=== PATIENT | male | born 1960 | race Caucasian/White ===

== ENCOUNTER 2020-10-18 09:47 | Emergency (ER) | payer OTHER, SELFPAY ==
[2020-10-18] VITALS (14 sets, daily range): BP systolic 69–98; BP diastolic 45–68; PULSE 92–112; RESP 23–37; TEMP 36.3; O2SAT 86–95
--- NOTE | ~2020-10-18 | CT_ITS ---
EXAMINATION: CT cervical spine wo con DATE: 10/18/2020 09:53 INDICATION: Head injury. TECHNIQUE: Computed tomography (CT) of the cervical spine was performed without intravenous contrast. Automated exposure control and iterative reconstruction technique were employed. The dose-length pro duct was 497.98 mGy-cm. COMPARISON: None FINDINGS: There is a small left pneumothorax. There are airspace and groundglass opacities in the upp er lobes, left worse than right. Pneumomediastinum is noted. There are fractures of the left first-fi fth ribs. There is 9 degrees dextrocurvature of cervical spine. Vertebral body heights are normal. Th ere is moderately decreased disc height at C3-C4, severely decreased disc height at C4-C5 and C5-C6, and mildly decreased disc height at C6-C7. The endotracheal tube tip is in the trachea. The following disc levels are specifically discussed: C2-C3: There is no uncovertebral joint osteoarthritis. There is no facet joint osteoarthritis. There is no neural foraminal stenosis. There is no central canal stenosis. C3-C4: There is severe bilateral uncovertebral joint osteoarthritis. There is mild bilateral facet santiago int osteoarthritis. There is moderate right and mild left neural foraminal stenosis. There is mild ce ntral canal stenosis. C4-C5: There is severe bilateral uncovertebral joint osteoarthritis. There is mild bilateral facet santiago int osteoarthritis. There is mild right and moderate left neural foraminal stenosis. There is mild ce ntral canal stenosis. C5-C6: There is severe bilateral uncovertebral joint osteoarthritis. There is mild bilateral facet santiago int osteoarthritis. There is mild bilateral neural foraminal stenosis. There is mild central canal st enosis. C6-C7: There is mild bilateral uncovertebral joint osteoarthritis. There is mild bilateral facet join t osteoarthritis. There is no neural foraminal stenosis. There is mild central canal stenosis. C7-T1: There is no uncovertebral joint osteoarthritis. There is mild right and moderate left facet santiago int osteoarthritis. There is no neural foraminal stenosis. There is no central canal stenosis. IMPRESSION: 1. Small left pneumothorax. I called this result to Chapin Briggs. 2. Pneumomediastinum. 3. Fractures of the left first-fifth ribs. 4. Airspace and groundglass opacities in the upper lobes, left worse than right, consistent with pulm onary edema versus pneumonia versus contusions. 5. Severe cervical spondylosis. Reviewed, dictated and finalized at location A. AL WORKER AIDE IMPRESSION: 1. Small left pneumothorax. I called this result to Chapin Briggs. 2. Pneumomediastinum. 3. Fractures of the left first-fifth ribs. 4. Airspace and groundglass opacities in the upper lobes, left worse than right , consistent with pulmonary edema versus pneumonia versus contusions. 5. Severe cervical spondylosis.
--- NOTE | ~2020-10-18 | CT_ITS ---
EXAMINATION: CT IAC/mastoids BI wo con DATE: 10/18/2020 10:18 INDICATION: Head injury. TECHNIQUE: Computed tomography (CT) of the temporal bones was performed without intravenous contrast. Automated exposure control and iterative reconstruction technique were employed. The dose-length pro duct was 0.00 mGy-cm. COMPARISON: None FINDINGS: RIGHT TEMPORAL BONE: The internal auditory canal, cochlea, and vestibule are normal. There is dehiscence of superior semic ircular canal posteriorly. The vestibular aqueduct, carotid canal, and jugular bulb are normal. There is a right otomastoid effusion. The ossicles are in normal position. There is a transverse fracture of the right temporal bone superiorly. There is extra-axial hematoma and gas superficial to the right temporal lobe with maximum thickness of 9 mm. LEFT TEMPORAL BONE: The internal auditory canal, cochlea, vestibule, semicircular canals, vestibular aqueduct, and ossicl es are normal. There is a small effusion of the tympanic cavity involving Prussak space. Scutum is no rmal. There is a nondisplaced fracture through the base of the zygomatic arch through the temporomand ibular joint. The facial nerve course is normal. The tympanic membrane and external auditory canal ar e normal. There is a trace left mastoid effusion. IMPRESSION: 1. Transverse fracture of the mastoid portion of right temporal bone with acute epidural versus subdu ral hematoma with gas overlying right temporal lobe. 2. Right otomastoid effusion. 3. Small left otomastoid effusion. 4. Fracture of base of the left zygomatic arch through the temporomandibular joint. Reviewed, dictated and finalized at location A. PLACER MACHINE OPERATOR IMPRESSION: 1. Transverse fracture of the mastoid portion of right temporal bone with acute epidural versus subdural hematoma with gas overlying right temporal lobe. 2. Right otomastoid effusion. 3. Small left otomastoid effusion. 4. Fracture of base of the left zygomatic arch through the temporomandibular santiago int.
--- NOTE | ~2020-10-18 | CT_ITS ---
EXAMINATION: CT brain wo con DATE: 10/18/2020 09:52 INDICATION: Unresponsive. Head injury. TECHNIQUE: Computed tomography (CT) of the head was performed without intravenous contrast. The mA wa s adjusted according to patient size. Iterative reconstruction technique was employed. The dose-lengt h product was 681.00 mGy-cm. COMPARISON: None FINDINGS: There is acute subarachnoid hemorrhage in the right frontotemporal region and sylvian fissu re. There is a fracture of the left lateral skull with up to 2 mm depression of bone fragments. There is an acute subdural hematoma on the left overlying the left temporal lobe with maximum thickness of 4 mm. There is acute collection of extra-axial hematoma and gas overlying the right temporal lobe wi th maximum thickness of 9 mm. There is a fracture of the right temporal bone. There is a right otomas toid effusion. There are fractures of the left zygomatic arch. There is mucosal thickening and fluid in the paranasal sinuses. There is a left-sided scalp laceration. There is no acute ischemic infarct or abnormal mass lesion. The ventricles are normal in size. No midline shift. There is a small volume of gas in the left orbit. There are foci of gas in the left radio frequency technician space. There is a lipoma in t he right frontal scalp. IMPRESSION: 1. Acute left temporal subdural hematoma with maximum thickness of 4 mm. 2. Acute extra-axial collection of hematoma and gas overlying the right temporal lobe that may be sub dural or epidural with maximum thickness of 9 mm. 3. Acute subarachnoid hemorrhage in the right frontoparietal region and right insula. 4. Right temporal bone fracture. Noncontrast temporal bone CT is recommended. 5. Left lateral skull fracture. 6. Fractures of left zygomatic arch and foci of gas in the left orbit. Noncontrast maxillofacial CT i s recommended. 7. I discussed these findings with Dr. Scott. Reviewed, dictated and finalized at location A. CONSULTANT IMPRESSION: 1. Acute left temporal subdural hematoma with maximum thickness of 4 mm. 2. Acute extra-axial collection of hematoma and gas overlying the right tempora l lobe that may be subdural or epidural with maximum thickness of 9 mm. 3. Acute subarachnoid hemorrhage in the right frontoparietal region and right i nsula. 4. Right temporal bone fracture. Noncontrast temporal bone CT is recommended. 5. Left lateral skull fracture. 6. Fractures of left zygomatic arch and foci of gas in the left orbit. Noncontr ast maxillofacial CT is recommended. 7. I discussed these findings with Dr. Scott.
--- NOTE | ~2020-10-18 | XR_ITS ---
EXAMINATION: XR chest ET placement DATE: 10/18/2020 10:21 INDICATION: Intubation. TECHNIQUE: A single frontal view of the chest was obtained. COMPARISON: None. FINDINGS: The left lateral aspect of the chest is excluded. There are airspace opacities in all left lung zones. Calcified right lung nodules and calcified right hilar lymph nodes are consistent with ol d granulomatous disease. No visible pleural effusion. There is a small left apical pneumothorax. The heart size is normal. The endotracheal tube tip is 8.3 cm above the carrie. The nasogastric tube tip is in the stomach. There are acute fractures of the left first-seventh ribs. IMPRESSION: 1. Endotracheal tube tip 8.3 cm above the carrie. 2. Airspace opacities in all left lung zones, likely contusion. 3. Small left apical pneumothorax. 4. Acute fractures of the left first-seventh ribs. Reviewed, dictated and finalized at location A. D CARE RN
--- NOTE | ~2020-10-18 | CT_ITS ---
EXAMINATION: CT facial bones wo con DATE: 10/18/2020 10:18 INDICATION: Head injury. TECHNIQUE: Computed tomography (CT) of the facial bones and maxillofacial region was performed withou t intravenous contrast. Automated exposure control and iterative reconstruction technique were employ ed. The dose-length product was 0.00 mGy-cm. COMPARISON: None. FINDINGS: There is a fracture of the left lateral skull. There is a nondisplaced comminuted fracture of left zygomatic arch including involvement of the temporomandibular joint. There are foci of gas in the left quarryman space. There is a nondisplaced fracture of the left sphenoid bone anterior to th e left temporal lobe. There is a nondisplaced fracture of lateral wall of the orbit. There are foci o f gas in the left orbit. There is a focus of gas in the superior aspect of the right orbit. There is leftward deviation of the nasal septum. There is mucosal thickening and fluid in the paranasal sinuse s. There is a transverse fracture involving superior portion of right temporal bone with acute right temporal subdural versus epidural hematoma with foci of gas. IMPRESSION: 1. Fracture of the left lateral skull. 2. Comminuted fracture of the left second metacarpal including involvement of the temporomandibular j oint. 3. No displaced fracture of left sphenoid bone anterior to the left temporal lobe. 4. Nondisplaced fracture of lateral wall of left orbit. 5. Focus of gas in the superior aspect of the right orbit of uncertain etiology. 6. Transverse fracture involving the superior mastoid portion of the right temporal bone with acute r ight temporal subdural versus epidural hematoma with foci of gas. Reviewed, dictated and finalized at location A. GE FILTRATION OPERATOR IMPRESSION: 1. Fracture of the left lateral skull. 2. Comminuted fracture of the left second metacarpal including involvement of t he temporomandibular joint. 3. No displaced fracture of left sphenoid bone anterior to the left temporal lo be. 4. Nondisplaced fracture of lateral wall of left orbit. 5. Focus of gas in the superior aspect of the right orbit of uncertain etiology . 6. Transverse fracture involving the superior mastoid portion of the right temp oral bone with acute right temporal subdural versus epidural hematoma with foci of gas.
--- NOTE | 2020-10-18 09:49 | ED.CPR ---
HPI - CPR General Chief Complaint: Cardiac Arrest/CPR Stated Complaint: unresponsive, code blue Source: EMS Mode of arrival: EMS Limitations: clinical condition History of Present Illness HPI narrative: This is 60 year old male with unknown medical problems who presents via EMS for cardiac arrest. 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 It is reported that patient was on a ladder up 10-12 ft. Witness reports patient looked to the left and then he fell off ladder. He was noted to have laceration to back his head and bruising around his left eye. After fall, patient was found to be pulseless at [employer] [facility] so CPR was started. EMS reports patient was shocked twice by an AED at the scene. They found patient was in pulseless VTAch on their arrival and they shocked patient once. They also reports he went into asystole. He was given 300 mg Amiodarone and he was started on an amiodarone drip. EMS called [facility] around 09 stating they were going to a cardiac arrest. PAtient regained ROsC just prior to getting to ER. He received epi x 3 from EMS. He also received 600 ml of IV fluids. EMS reports BP in 120s Related Data Allergies Allergy/AdvReac Type Severity Reaction Status Date / Time No Known Allergies Allergy Unverified 06/08/16 08:47 Review of Systems Review of Systems: ROS unobtainable: Yes unobtainable due to medical condition PMFSH Comments unknown medical, surgical, family , and social history Exam Const: General: ill appearing Other: intubated HENMT: Head: other Other: left periorbital ecchymosis, edema; left posterior scalp laceration; ETT 24 at the lips Eyes: Other: pupils 2 mm nonreactive Resp: Auscultation: diminished lung sounds on the left Other: intubated e Cardio: Rate: tachycardic Rhythm: regular rhythm Heart sounds: no murmurs GI: GI Palp: Yes Soft to palpation, No Guarding due to palpation present (GI) and No Rigid due to palpation Auscultation: normal bowel sounds Skin: Other: left periorbital ecchymosis Neuro: Other: unresponsive , posturing Extrem: Other: no definite deformities Course Course Emergency Course: Patient presents to ER after fall off a ladder. He was a cardiac arrest in the field. It is likely he suffered a heart attack and fell of the ladder. He was pulseless VT initially in which he was started on ACLS protocol and intubated. ROsC was obtained. Patient found to have significant brain injury on CT in ER. He was also found to have STEMI on EKG. DUe to his traumatic injuries he is not candidate for cardiac intervention with PCI per hemodialysis lab technician at [facility]. He was also found to left rib fractures with a left pneumothorax. He was vented and being placed in helicopter. His oxygen saturation was decreasing so I placed a chest tube before transportation. He was given IVF. He was accepted by [place] [facility], Dr. Paiz. Vital Signs Vital signs: Vital Signs Pulse Oximetry 95 10/18/20 09:50 Temperature 97.3 F L 10/18/20 09:58 Pulse Rate 98 10/18/20 11:18 Respiratory Rate 32 H 10/18/20 11:18 Blood Pressure 86/45 L 10/18/20 11:18 Pulse Oximetry 86 L 10/18/20 11:18 Procedures Chest Tube Chest Tube 1: Chest Tube Date: 10/18/20 Chest Tube Time: 10:40 Chest Tube Location: left, mid axillary line and fifth interspace Size of Tube (cm): 20 Chest Tube Prep: Yes betadine prep Incision Made With: #11 blade Procedure: incision/open Post Procedure: sutured to skin, sterile dressing applied and connected to Pluero Vac Tube Drainage: air Amount of initial drainage (mL): 10 Post Procedure CXR?: No Patient Tolerated Procedure: Yes Progress: unable to get MDM - Cardiac Arrest/CPR Lab Data Attestation: I reviewed the patient's lab results. Result diagrams: 10/18/20 10:12 10/18/20 10:12 Labs: Lab Results
--- NOTE | 2020-10-18 09:55 | ECG_ITS ---
Measurements Intervals [place] Rate: 101 P: 25 DC: 200 QRS: 80 QRSD: 133 T: 268 QT: 331 QTc: 431 Interpretive Statements SINUS TACHYCARDIA INTRAVENTRICULAR CONDUCTION DELAY DELAYED PRECORDIAL R/S TRANSITION INFERIOR ST ELEVATION MYOCARDIAL INJURY- ACUTE BASELINE ARTIFACT- II, AVF, V3 ABNORMAL ECG Electronically Signed On 10-18-2020 11:35:12 HAND STEMMER by Omar Fraser D.O.
--- NOTE | 2020-10-18 10:01 | PC.NURSE ---
FSBS 261. ETT noted at 24 lip, 7.0 turkish.
[2020-10-18 10:05] LABS: Glucose Point of Care 261 (65-105)
--- NOTE | 2020-10-18 10:05 | PC.NURSE ---
Spoke with daughter, Elisabeth , informed her of the dire situatuion and will call her with transfer hospital
--- NOTE | 2020-10-18 10:06 | PC.NURSE ---
16 kuwaiti OG tube placed at 63 lip. 16 kuwaiti kauffman cath placed.
[2020-10-18 10:22] LABS: Basophils Absolute Auto 0.1 K/mm3 (0.0-0.1); Basophils Percent Auto 0.6 % (0.2-1.2); Eosinophils Absolute Auto 0.1 K/mm3 (0-0.3); Eosinophils Percent Auto 0.5 % (0-4.4); Hematocrit 42.2 % (42.0-52.0); Hemoglobin 13.7 g/dL (14.0-18.0); Immature Granulocyte Absolute 0.25 K/mm3 (0.00-0.031); Immature Granulocyte Percent A 2.3 % (0-0.5); Lymphocytes Absolute Auto 3.14 K/mm3 (0.9-3.2); Lymphocytes Percent Auto 28.3 % (18.3-44.2); Mean Corpuscular HGB Conc 32.5 g/dl (32-36); Mean Corpuscular Hemoglobin 30.6 pg (26-34); Mean Corpuscular Volume 94.2 fl (80-100); Mean Platelet Volume 11.1 fl (7.4-10.4); Monocytes Absolute Auto 0.6 K/mm3 (0.1-0.6); Neutrophils Percent Auto 63.3 % (45.5-73.1); Platelet Count Result 183 k/mm3 (150-375); Red Blood Count 4.48 M/mm3 (4.6-6.20); Red Cell Distribution Width 12.4 % (11.5-14.5); White Blood Count 11.1 K/mm3 (4.5-10.0)
--- NOTE | 2020-10-18 10:25 | PC.NURSE ---
Eyes deviating to the left. MICHAEL. Pt having decorticate posturing.
--- NOTE | 2020-10-18 10:32 | PC.NURSE ---
1 liter NS started.
[2020-10-18 10:33] LABS: INR 1.4; Potassium 3.4 mmol/L (3.4-5.0); Prothrombin Time 17.4 Seconds (11.1-14.7)
[2020-10-18 10:34] LABS: Partial Thromboplastin Time 44.7 SECONDS (22.3-36.8)
[2020-10-18 10:35] LABS: Albumin Level 3.2 g/dL (3.5-5.1); Alkaline Phosphatase 56 U/L (38-126); Anion Gap 14 mmol/L (8-16); Aspartate Amino Transferase 122 U/L (17-59); Bilirubin,Total 0.5 mg/dL (0.2-1.3); Blood Urea Nitrogen 20 mg/dL (9-20); Calcium 7.9 mg/dL (8.4-10.2); Carbon Dioxide 17 mmol/L (22-30); Chloride 105 mmol/L (98-107); Estimated CRCL calculation 65 ml/min; Estimated Glomerular Filt Rate > 60; Glucose 309 mg/dL (75-110); Sodium 136 mmol/L (137-145)
--- NOTE | 2020-10-18 10:41 | PC.NURSE ---
Fentanyl 50 mg IVP.
--- NOTE | 2020-10-18 10:42 | PC.NURSE ---
Versed 2mg given IVP.
--- NOTE | 2020-10-18 10:44 | PC.NURSE ---
20 fr chest tube placed to left lung. Bright red blood returned.
[2020-10-18 10:45] LABS: Alanine Aminotransferase 103 U/L (4-50)
[2020-10-18 10:47] LABS: Troponin I 0.092 ng/mL (0.000-0.034)
--- NOTE | 2020-10-18 11:07 | PC.NURSE ---
To [facility] via [employer] helicopter.
--- NOTE | 2020-10-18 11:07 | PC.NURSE ---
NS liter infusing. Approx 500 ml infused when pt left facility. Care turned over to [employer].
== END 2020-10-18 11:23 | disposition short-term general hospital (02) ==
PROVIDERS: Emergency Provider General Practice
DX: I21.3 ST elevation (STEMI) myocardial infarction of unspecified site (principal); I46.9 Cardiac arrest, cause unspecified; S06.6X9A Traumatic subarachnoid hemorrhage with loss of consciousness of unspecified duration, initial encounter; S06.5X9A Traumatic subdural hemorrhage with loss of consciousness of unspecified duration, initial encounter; S27.0XXA Traumatic pneumothorax, initial encounter; S22.42XA Multiple fractures of ribs, left side, initial encounter for closed fracture; S02.19XA Other fracture of base of skull, initial encounter for closed fracture; S02.842A Fracture of lateral orbital wall, left side, initial encounter for closed fracture; S02.40FA Zygomatic fracture, left side, initial encounter for closed fracture; T79.7XXA Traumatic subcutaneous emphysema, initial encounter; R91.8 Other nonspecific abnormal finding of lung field; M47.812 Spondylosis without myelopathy or radiculopathy, cervical region; W11.XXXA Fall on and from ladder, initial encounter
CPT/HCPCS: 32551; 36415; 70450; 70480; 70486; 72125; 80053; 82948; 84484; 85025; 85610; 85730; 86850; 86900; 86901; 93005; 96361; 96374; 96375; 99291; C1729; J2250; J3010; J7030